=== PATIENT | female | born 1980 | race Caucasian/White ===

== ENCOUNTER → 2017-01-18 | Outpatient (CLI) | payer OTHER ==
--- NOTE | 2017-01-18 12:04 | RAD ---
HISTORY: Trauma to middle finger Study: 3 views of the right hand. Comparison: None Findings: No acute fractures or dislocations. The carpal bones appear well aligned. The visualized portions of the distal radius and ulna are unremarkable. Joint spaces of the finger are maintained. No signific ant soft tissue abnormality. IMPRESSION: 1. No acute abnormalities of the right hand. Reported By:
== END ==
LOC: RAD 10:53
PROVIDERS: ATTEND Nurse Practitioner Family
DX: M25.541 Pain in joints of right hand (principal)
CPT/HCPCS: 73130